=== PATIENT | female | born 1965 | race Asian ===

== ENCOUNTER 2018-02-17 18:16 | Emergency (ER) | payer OTHER ==
[2018-02-17] MEDS ORDERED: SODIUM CHLORIDE 1,000 ML IV STA (18:32)
[2018-02-17] MEDS ORDERED: ACETAMINOPHEN 1000 MG/100 ML VIAL (NON FORMULARY) IVPB ONE (18:32)
[2018-02-17] MEDS ORDERED: ACETAMINOPHEN INJECTION 100 ML IVPB ONE (18:43)
[2018-02-17 19:07] LABS: BASO % 0.5 % (0-2.0); EOS % 0.5 % (0-4.5); HEMATOCRIT 38.7 % (32.4-45.2); HEMOGLOBIN 13.8 GM/dL (10.7-15.3); MCH 31.8 pg (25.7-33.7); MCHC 35.7 g/dl (32.0-36.0); MEAN CELL VOLUME 89.2 fl (80-96); MEAN PLT VOLUME 8.3 fl (7.5-11.1); MONO % 4.6 % (3.8-10.2); NEUT % 84.4 % (42.8-82.8); PLATELET COUNT 212 K/MM3 (134-434); RBC 4.34 M/mm3 (3.60-5.2); RDW 13.1 % (11.6-15.6); WHITE BLOOD COUNT 8.3 K/mm3 (4.0-10.0)
[2018-02-17 19:23] LABS: INR 0.91 (0.83-1.09); PROTHROMBIN TIME (PATIENT) 10.7 SEC (9.7-13.0)
[2018-02-17 19:56] LABS: ALBUMIN 3.8 g/dl (3.4-5.0); ALK PHOS 115 U/L (45-117); ANION GAP 7 MMOL/L (8-16); BILIRUBIN,TOTAL 0.6 mg/dL (0.2-1); BLOOD UREA NITROGEN 14 mg/dL (7-18); CALCIUM 8.9 mg/dL (8.5-10.1); CHLORIDE 108 mmol/L (98-107); CO2 28 mmol/L (21-32); CREATININE 1.1 mg/dL (0.55-1.3); GLUCOSE,RANDOM 104 mg/dL (74-106); LIPASE 282 U/L (73-393); POTASSIUM 3.7 mmol/L (3.5-5.1); SGOT/AST 72 U/L (15-37); SGPT/ALT 59 U/L (13-61); SODIUM 142 mmol/L (136-145); TOT PROT 6.7 g/dl (6.4-8.2)
[2018-02-17] MEDS ORDERED: METOCLOPRAMIDE HCL INJECTION 10 MG/2 ML VIAL IVPUSH ONE (20:33)
[2018-02-17] MEDS ORDERED: METOCLOPRAMIDE HCL INJECTION 10 MG/2 ML VIAL ONE (20:50)
--- NOTE | 2018-02-17 21:07 | PDOC ---
History of Present Illness - General Chief Complaint: Pain Stated Complaint: Pain, Acute Time Seen by Provider: 02/17/18 18:24 History Source: Patient Exam Limitations: No Limitations - History of Present Illness Initial Comments: 02/17/18 21:21 52-year-old female, with history of pancreatic neuroendocrine tumor, status post partial pancreatectomy presents to the ER with a severe epigastric pain that is exacerbated postprandially 24 hours after undergoing a routine endoscopic ultrasound for surveillance purposes. Pain is sharp, nonradiating, not positional, with mild nausea without vomiting or diarrhea. Patient denies blood red blood per rectum or melena. Last meal was several hours prior to arrival. REVIEW OF SYSTEMS CONSTITUTIONAL: No fever, no chills, no fatigue EYES: No visual changes ENT: No ear pain, no sore throat CARDIOVASCULAR: No chest pain, no palpitations RESPIRATORY: No cough, no SOB GI: +abdominal pain, + nausea, no vomiting, no constipation, no diarrhea GENITOURINARY: No dysuria, no frequency, no hematuria MUSKULOSKELETAL: No backpain, no joint pain, no myalgias SKIN: No rash NEURO: No headache EXAMINATION CONSTITUTIONAL: Well-appearing; well-nourished; in no apparent distress HEAD: Normocephalic; atraumatic EYES: PERRL; EOM intact ENMT: External appears normal; normal oropharynx NECK: Supple; non-tender; no cervical lymphadenopathy CARD: Normal S1, S2; no murmurs, rubs, or gallops RESP: Normal chest excursion with respiration; breath sounds clear and equal bilaterally; no wheezes, rhonchi, or rales ABD: Soft, non-distended; + minimal epigastric tender; no guarding or rebound; no palpable organomegaly, no palpable hernias EXT: Normal ROM in all four extremities; non-tender to palpation; distal pulses intact SKIN: Warm, dry, no rash NEURO: No focal neurological deficiencies. Past History - Past Medical History Allergies/Adverse Reactions: Allergies Allergy/AdvReac Type Severity Reaction Status Date / Time No Known Allergies Allergy Verified 02/24/16 07:22 Home Medications: Ambulatory Orders Cholecalciferol (Vitamin D3) [Vitamin D3 -] 2,000 unit PO DAILY 02/20/16 Anemia: No Asthma: No Cancer: No Cardiac Disorders: No CVA: No COPD: No CHF: No Dementia: No Diabetes: No GI Disorders: No Disorders: No HTN: No Hypercholesterolemia: No Liver Disease: No Seizures: No Thyroid Disease: Yes (THYROID CANCER-THYROIDECTOMY) - Surgical History Appendectomy: Yes Cholecystectomy: Yes - Suicide/Smoking/Psychosocial Hx Smoking History: Former smoker Have you smoked in the past 12 months: No Hx Alcohol Use: Yes (SOCIAL) Drug/Substance Use Hx: No ED Treatment Course - LABORATORY CBC & Chemistry Diagram: 02/17/18 18:45 02/17/18 18:45 - ADDITIONAL ORDERS Additional order review: Laboratory Results 02/17/18 02/17/18 02/17/18 18:45 18:45 18:45 PT with INR 10.70 INR 0.91 Sodium 142 Potassium 3.7 Chloride 108 H Carbon Dioxide 28 Anion Gap 7 L BUN 14 Creatinine 1.1 Creat Clearance w eGFR 51.76 Random Glucose 104 Calcium 8.9 Total Bilirubin 0.6 AST 72 H ALT 59 Alkaline Phosphatase 115 Total Protein 6.7 Albumin 3.8 Lipase 282 Blood Type O POSITIVE Antibody Screen Negative 02/17/18 18:45 RBC 4.34 MCV 89.2 MCHC 35.7 RDW 13.1 MPV 8.3 Neutrophils % 84.4 H D Lymphocytes % 10.0 D Monocytes % 4.6 Eosinophils % 0.5 Basophils % 0.5 - RADIOLOGY Radiology Studies Ordered: Category Date Time Status ABDOMEN & PELVIS CT W/O CONTR [CT] Stat CT Scan 02/17/18 18:32 Completed - Medications Given in the ED: ED Medications Discontinued Medications Generic Name Dose Route Start Last Admin Trade Name Freq PRN Reason Stop Dose Admin Acetaminophen 1,000 mg 02/17/18 18:32 02/17/18 18:49 Ofirmev Injection - IVPB 02/17/18 18:33 1,000 mg ONCE ONE Administration Sodium Chloride 1,000 mls @ 1,000 mls/hr 02/17/18 18:32 02/17/18 18:49 Normal Saline - IV 02/17/18 19:31 1,000 mls/hr ASDIR STA Administration Medical Decision Making - Medical Decision Making 02/17/18 21:22 52-year-old female with history of partial pancreatectomy due to a neuroendocrine tumor presents with abdominal pain 24 hours after endoscopic ultrasound. CT that and pelvis reveals no evidence of free air or free fluid. CBC and CMP reveal no significant abnormality. AST is minimally elevated. After administration of IV fluid and Tylenol, patient feels improved, pain-free and tolerates by mouth. Will discharge with outpatient follow-up. *DC/Admit/Observation/Transfer Diagnosis at time of Disposition: Epigastric abdominal pain - Discharge Dispostion Disposition: HOME Condition at time of disposition: Stable - Referrals Referrals: Ga Ramos MD [Primary Care Provider] - - Patient Instructions Printed Discharge Instructions: DI for Abdominal Pain-Adult - Post Discharge Activity
[2018-02-18 07:59] LABS: GAMMA GLUTAMYL TRANSPEPTIDASE 174 U/L (5-85)
== END 2018-02-17 21:39 | disposition home or self-care (01) ==
LOC: JER 18:16
PROC: 3E033NZ Introduction of Analgesics, Hypnotics, Sedatives into Peripheral Vein, Percutaneous Approach (ICD-10-PCS; principal; 2018-02-17)
PROC: 3E0337Z Introduction of Electrolytic and Water Balance Substance into Peripheral Vein, Percutaneous Approach (ICD-10-PCS; 2018-02-17)
DX: R10.13 Epigastric pain (principal); Z85.850 Personal history of malignant neoplasm of thyroid; Z87.891 Personal history of nicotine dependence
CPT/HCPCS: 36415; 74176-TC; 80053; 82977; 83690; 85025; 85610; 86850; 86900; 86901; 99281-25; J0131; J7030

== ENCOUNTER 2020-03-21 06:36 | Day surgery (SDC) | payer OTHER ==
[2020-03-21 07:17] VITALS: BMI 23.3
[2020-03-21] MEDS ORDERED: GENTAMICIN SO4 80 MG/2 ML VIAL ONE (07:43)
[2020-03-21] MEDS ORDERED: ceFAZolin SODIUM 1 GM VIAL ONE ×2 (07:43→07:52)
[2020-03-21] MEDS ORDERED: LIDOCAINE HCL 1%, 10 MG/ML (20ML VIAL) ONE (07:43)
[2020-03-21] MEDS ORDERED: BUPIVACAINE HCL/PF 0.25% (2.5MG/ML) 10 ML VIAL ONE (07:43)
[2020-03-21] MEDS ORDERED: EPINEPHrine/PF 1 MG/1 ML (1:1,000) AMPULE ONE (07:43)
[2020-03-21] MEDS ORDERED: LIDOCAINE 1%/EPI 1:100000 (20 ML MULTI DOSE VIAL) ONE (07:44)
[2020-03-21] MEDS ORDERED: MIDAZOLAM HCL 2 MG/2 ML SINGLE DOSE VIAL ONE (07:50)
[2020-03-21] MEDS ORDERED: PROPOFOL 20 ML ONE ×4 (07:50→10:01)
[2020-03-21] MEDS ORDERED: LIDOCAINE HCL/PF 2% SDV 5ML VIAL ONE (07:52)
[2020-03-21] MEDS ORDERED: ONDANSETRON 4 MG/2 ML VIAL ONE (07:52)
[2020-03-21] MEDS ORDERED: KETOROLAC TROMETHAMINE 30 MG/1 ML VIAL ONE (07:52)
[2020-03-21] MEDS ORDERED: LIDOCAINE HCL 2% JELLY (5 ML/TUBE) ONE (07:52)
[2020-03-21] MEDS ORDERED: DEXAMETHASONE SOD PHOSPHATE 4 MG/1 ML VIAL ONE (07:52)
[2020-03-21] MEDS ORDERED: GLYCOPYRROLATE 0.2 MG/1 ML VIAL ONE (08:17)
[2020-03-21] MEDS ORDERED: BUPIVACAINE HCL/EPINEPHRINE/PF 30 ML VIAL IJ ONE ×2 (08:19→09:02)
[2020-03-21] MEDS ORDERED: EPHEDRINE SULFATE/0.9% NACL/PF 50 MG/10 ML SYRINGE NR ONE (08:26)
[2020-03-21] MEDS ORDERED: BUPIVACAINE LIPOSOME/PF (EXPAREL) 266 MG/20 ML VIAL ONE (08:33)
[2020-03-21] MEDS ORDERED: THROMBIN (RECOMBINANT) 5,000 UNIT VIAL TP ONE (09:46)
[2020-03-21] MEDS ORDERED: PROMETHAZINE HCL 25 MG/1 ML VIAL IVPUSH PRN (10:32)
[2020-03-21] MEDS ORDERED: ONDANSETRON 4 MG/2 ML VIAL IVPUSH PRN (10:32)
[2020-03-21] MEDS ORDERED: oxyCODONE HCL 5 MG TABLET PO PRN ×2 (10:32)
[2020-03-21] MEDS ORDERED: BACITRACIN 15 GM TUBE TOPICAL OINTMENT TP ONE (11:15)
[2020-03-21 12:05] VITALS: BP 110/61; PULSE 58; TEMP 98
== END 2020-03-21 13:35 | disposition home or self-care (01) ==
LOC: FASU 06:36
PROVIDERS: ATTEND Plastic Surgery
PROC: 0HRV0JZ Replacement of Bilateral Breast with Synthetic Substitute, Open Approach (ICD-10-PCS; 2020-03-21)
PROC: 0HRV07Z Replacement of Bilateral Breast with Autologous Tissue Substitute, Open Approach (ICD-10-PCS; 2020-03-21)
PROC: 0HPU0JZ Removal of Synthetic Substitute from Left Breast, Open Approach (ICD-10-PCS; principal; 2020-03-21 08:30)
PROC: 0HPT0JZ Removal of Synthetic Substitute from Right Breast, Open Approach (ICD-10-PCS; 2020-03-21 08:30)
DX: M95.4 Acquired deformity of chest and rib (principal); Z90.13 Acquired absence of bilateral breasts and nipples; T85.41XA Breakdown (mechanical) of breast prosthesis and implant, initial encounter; T85.43XA Leakage of breast prosthesis and implant, initial encounter; Y93.89 Activity, other specified; Y92.9 Unspecified place or not applicable
CPT/HCPCS: 19342; 19380; L8600; 88300-TC; 88304-TC; 94760

== ENCOUNTER 2020-09-05 11:23 | Day surgery (SDC) | payer OTHER ==
[2020-09-05] MEDS ORDERED: ceFAZolin SODIUM 1 GM VIAL ONE ×2 (11:30→12:25)
[2020-09-05] MEDS ORDERED: GENTAMICIN SO4 80 MG/2 ML VIAL ONE (11:30)
[2020-09-05] MEDS ORDERED: LIDOCAINE 1%/EPI 1:100000 (20 ML MULTI DOSE VIAL) ONE (11:30)
[2020-09-05] MEDS ORDERED: BUPIVACAINE HCL/PF 2.5 MG/ML - 30 ML VIAL IJ ONE (11:30)
[2020-09-05 12:00] VITALS: BMI 23.6
[2020-09-05] MEDS ORDERED: ONDANSETRON 4 MG/2 ML VIAL ONE (12:25)
[2020-09-05] MEDS ORDERED: KETOROLAC TROMETHAMINE 30 MG/1 ML VIAL ONE (12:25)
[2020-09-05] MEDS ORDERED: DEXAMETHASONE SOD PHOSPHATE 4 MG/1 ML VIAL ONE (12:25)
[2020-09-05] MEDS ORDERED: LIDOCAINE HCL/PF 2% SDV 5ML VIAL ONE (12:25)
[2020-09-05] MEDS ORDERED: MIDAZOLAM HCL 2 MG/2 ML SINGLE DOSE VIAL ONE (12:26)
[2020-09-05] MEDS ORDERED: PROPOFOL 20 ML ONE ×2 (12:26)
[2020-09-05] MEDS ORDERED: PROMETHAZINE HCL 25 MG/1 ML VIAL IVPUSH PRN (14:11)
[2020-09-05] MEDS ORDERED: oxyCODONE HCL 5 MG TABLET PO PRN ×2 (14:11)
[2020-09-05] MEDS ORDERED: ONDANSETRON 4 MG/2 ML VIAL IVPUSH PRN (14:11)
[2020-09-05 16:23] VITALS: BP 124/71; PULSE 51; TEMP 97.8
== END 2020-09-05 16:15 | disposition home or self-care (01) ==
LOC: FASU 11:23
PROVIDERS: ATTEND Plastic Surgery
PROC: 0HNV0ZZ Release Bilateral Breast, Open Approach (ICD-10-PCS; principal; 2020-09-05 12:55)
DX: M95.4 Acquired deformity of chest and rib (principal); Z90.13 Acquired absence of bilateral breasts and nipples; N65.1 Disproportion of reconstructed breast; T85.41XA Breakdown (mechanical) of breast prosthesis and implant, initial encounter; Y83.8 Other surgical procedures as the cause of abnormal reaction of the patient, or of later complication, without mention of misadventure at the time of the procedure; Y92.9 Unspecified place or not applicable
CPT/HCPCS: 19342; L8600; 88300-TC; 94760